=== PATIENT | female | born 1940 ===

== ENCOUNTER 2021-01-23 11:41 | Inpatient (IN) ==
[2021-01-23] MEDS ORDERED: methylPREDNISolone 125 mg 2 ML VIAL IV ONE (12:05)
[2021-01-23] MEDS ORDERED: Albuterol HFA INHALER 8 gm MDI INH ONE (12:05)
[2021-01-23] MEDS ORDERED: Azithromycin 500 mg/250 ml NS 500 MG/250 ML BAG IVPB ONE (12:08)
[2021-01-23] MEDS ORDERED: cefTRIAXone 1 gm/50 mL NS BAG 1 GM/50 ML BAG IV ONE (12:08)
[2021-01-23] MEDS ORDERED: NS 0.9% IV ONE (12:15)
[2021-01-23 12:38] LABS: ABS Lymphocytes 0.6 10^3/ul (1.0-4.8); ABS Monocytes 0.4 10^3/ul (0-0.8); ABS Neutrophils 15.2 10^3/ul (1.5-7.7); Eosinophil % 0.2 %; Hematocrit 39 % (35-47); Hemoglobin 13.6 g/dL (12.0-16.0); Lymphocyte % 3.7 %; Mean Corpuscular HGB Conc 35 g/dL (31-36); Mean Corpuscular Hemoglobin 30 pg (27-31); Mean Corpuscular Volume 87 fL (80-97); Mean Platelet Volume 7.5 fL (7.4-10.4); Platelet Count 330 10^3/uL (150-450); Red Blood Count 4.55 10^6 /uL (3.70-4.87); Red Cell Distribution Width 14 % (10-15); White Blood Count 16.3 10^3/uL (3.5-10.8)
[2021-01-23 12:54] LABS: Influenza A Molecular Negative (Negative); Influenza B Molecular Negative (Negative)
[2021-01-23 12:56] LABS: Albumin 4.2 g/dL (3.2-5.2); Albumin/Globulin Ratio 1.2 (1-3); C Reactive Protein 13.75 mg/L (<8.01); EGFR African American 81.6 (>60); EGFR Non-African American 67.4 (>60); Globulin 3.6 g/dL (2-4); Potassium 3.6 mmol/L (3.5-5.0); Total Bilirubin 0.6 mg/dL (0.2-1.0); Total Protein 7.8 g/dL (6.4-8.9)
[2021-01-23 12:57] LABS: Troponin I 0.01 ng/mL (<0.03)
[2021-01-23 12:58] LABS: Activated Partial Thrombo Time 31.9 seconds (26.0-38.0); INR 1.19 (0.86-1.15)
[2021-01-23] MEDS ORDERED: NORMOSOL-R pH 7.4 1000 mL BAG 1,000 ML IV SCH (13:00)
[2021-01-23 13:04] LABS: Resp Syncytial Virus Molecular Negative (Negative)
[2021-01-23] MEDS ORDERED: Iohexol 350 (CONTRAST) 500 ML MDV IV ONE (13:09)
[2021-01-23 14:19] LABS: Urine Appearance Clear; Urine Bilirubin Negative (Negative); Urine Blood Negative (Negative); Urine Color Straw; Urine Glucose Negative (Negative); Urine Ketones Negative (Negative); Urine Nitrite Negative (Negative); Urine Protein Negative (Negative); Urine Specific Gravity 1.008 (1.002-1.030); Urine Urobilinogen Negative (Negative)
[2021-01-23] MEDS ORDERED: Magnesium Hydroxide LIQ 30 ML UDC PO PRN (16:20)
[2021-01-23] MEDS ORDERED: Albuterol HFA INHALER 8 gm MDI INH PRN (16:29)
[2021-01-23] MEDS ORDERED: Albuterol/Ipratropium NEB.SOL (2.5/0.5 MG) 3 ML NEB.SOLN INH SCH (17:00)
[2021-01-23] MEDS ORDERED: CMCS:Meloxicam 7.5 mg TAB (NF) PO PRN (18:04)
[2021-01-23] MEDS: Enoxaparin 40 MG/0.4 ML SYR SUBCUT SCH (21:20)
[2021-01-23] MEDS: CMCS:Simvastatin 10 mg TAB (NF) PO SCH (21:22)
[2021-01-24 06:03] LABS: ABS Basophils 0.1 10^3/ul (0-0.2); ABS Lymphocytes 1.2 10^3/ul (1.0-4.8); ABS Monocytes 0.3 10^3/ul (0-0.8); ABS Neutrophils 13.4 10^3/ul (1.5-7.7); Eosinophil % 0.2 %; Hematocrit 35 % (35-47); Hemoglobin 11.9 g/dL (12.0-16.0); Lymphocyte % 8.2 %; Mean Corpuscular HGB Conc 34 g/dL (31-36); Mean Corpuscular Hemoglobin 30 pg (27-31); Mean Corpuscular Volume 87 fL (80-97); Mean Platelet Volume 7.3 fL (7.4-10.4); Platelet Count 315 10^3/uL (150-450); Red Blood Count 4.01 10^6 /uL (3.70-4.87); Red Cell Distribution Width 14 % (10-15)
[2021-01-24 06:22] LABS: Calcium 8.6 mg/dL (8.6-10.3); EGFR African American 91.8 (>60); EGFR Non-African American 75.9 (>60); Potassium 3.6 mmol/L (3.5-5.0)
[2021-01-24] MEDS: cefTRIAXone 1 gm/50 mL NS BAG 1 GM/50 ML BAG IVPB SCH (12:40)
[2021-01-24] MEDS: Azithromycin 500 mg/250 ml NS 500 MG/250 ML BAG IVPB SCH (14:11)
[2021-01-24 14:25] LABS: Hematocrit 36 % (35-47); Hemoglobin 12.1 g/dL (12.0-16.0)
[2021-01-24] MEDS: Enoxaparin 40 MG/0.4 ML SYR SUBCUT SCH (17:32)
[2021-01-24] MEDS ORDERED: Albuterol/Ipratropium NEB.SOL (2.5/0.5 MG) 3 ML NEB.SOLN INH SCH (19:30)
[2021-01-24] MEDS: CMCS:Simvastatin 10 mg TAB (NF) PO SCH (22:19)
[2021-01-25 06:16] LABS: ABS Lymphocytes 2.7 10^3/ul (1.0-4.8); ABS Monocytes 0.9 10^3/ul (0-0.8); ABS Neutrophils 10.8 10^3/ul (1.5-7.7); Eosinophil % 0.1 %; Hematocrit 35 % (35-47); Hemoglobin 11.7 g/dL (12.0-16.0); Lymphocyte % 18.6 %; Mean Corpuscular HGB Conc 33 g/dL (31-36); Mean Corpuscular Hemoglobin 30 pg (27-31); Mean Corpuscular Volume 90 fL (80-97); Mean Platelet Volume 7.2 fL (7.4-10.4); Nucleated Red Blood Cells % 0.1; Platelet Count 335 10^3/uL (150-450); Red Blood Count 3.95 10^6 /uL (3.70-4.87); Red Cell Distribution Width 14 % (10-15); White Blood Count 14.5 10^3/uL (3.5-10.8)
[2021-01-25 09:38] VITALS: BP 130/55
[2021-01-25] MEDS: cefTRIAXone 1 gm/50 mL NS BAG 1 GM/50 ML BAG IVPB SCH (11:15)
[2021-01-25] MEDS: Azithromycin 500 mg/250 ml NS 500 MG/250 ML BAG IVPB SCH (12:29)
== END 2021-01-25 14:47 | disposition home or self-care (01) | DRG 871 ==
LOC: ED 11:41 → SUATTDRO 16:20 → MED 16:20 → MEDTELE 01-25 00:18
PROVIDERS: ADMIT Hospitalist; ATTEND Internal Medicine